=== PATIENT | female | born 1945 | race African-American/Black ===

== ENCOUNTER 2018-02-20 11:34 | Day surgery (SDC) | payer OTHER ==
[2018-02-20] MEDS ORDERED: NA CHLORIDE 0.9% 500 ML ONE (12:12)
[2018-02-20] MEDS ORDERED: LIDOCAINE 2% MPF 5 ML VIAL ONE ×2 (12:13→13:08)
[2018-02-20] MEDS ORDERED: BUPIVACAINE 0.25% PF 30 ML VIAL ONE (12:14)
[2018-02-20] MEDS ORDERED: BALANCED SALT IRRIG PLAIN 500 ML BTL IRR ONE (12:30)
[2018-02-20] MEDS ORDERED: DUOVISC 1 KIT OPTH ONE (12:30)
[2018-02-20] MEDS ORDERED: MOXIFLOXACIN HCL 10 DROPS/ML **OR USE OPTH ONE (12:30)
[2018-02-20] MEDS: CYCLOPENTOLATE 1% OPTH 2 ML ONE ×3 (12:37→12:55)
[2018-02-20] MEDS: PHENYLEPHRINE 10% OPTH 5ML ONE ×3 (12:37→12:55)
[2018-02-20] MEDS ORDERED: TETRACAINE HCL 0.5% 2ML OPTH ONE (12:39)
[2018-02-20] MEDS ORDERED: PROPOFOL 200 MG/20 ML VIAL IV ONE (13:08)
[2018-02-20] MEDS: EPINEPHRINE/PF 1 MG/ML AMP ONE ×2 (13:14→13:29)
--- NOTE | 2018-02-20 14:04 | P.BOP ---
Preoperative diagnosis: Nuclear sclerotic cataract and angle closure glaucoma OS Postoperative diagnosis: Same Primary procedure: Phacoemulsification with IOL OS, complex Estimated blood loss: none Anesthesia: Local (Subtenon's infusion with anesthesia for cataract surgery) Complications: None Implants: ZCB00 +23.0 Transferred to: Other (Day surger) Condition: Good
--- NOTE | 2018-02-21 01:12 | OP ---
Date of Procedure: 02/20/2018 Surgeon: Sully Eddy MD Anesthesiologist: Dick Taylor CRNA, and Ovi Bhat M.D. Preoperative Diagnoses: Nuclear sclerotic, angle-closure glaucoma, and miosis left eye. Operation Performed: Phacoemulsification with intraocular lens implant left eye complex with the use of iris retractors. Anesthesia: Per cataract surgery. Complications: None. Description Of The Procedure: In day surgery, the patient was prepped with Betadine and draped. A lid speculum was placed in the left eye. A conjunctival incision was made in the inferior nasal quadrant with Shayla scissors. A 1:1 mixture of 2% Xylocaine and 0.25% bupivacaine was placed around the globe. Approximately 5 mL were used. A [place] balloon was placed on the eye for approximately 5 minutes. The patient was brought into the operative room. The patient was prepped and draped in the usual sterile fashion for ophthalmic surgery. A lid speculum was placed in the eye. Paracentesis was made superiorly and inferiorly in the limbal cornea. Viscoat was placed in the anterior chamber. A crescent blade was used to create a tunnel incision in the temporal cornea and a keratome was used to enter the anterior chamber. The pupil did not dilate adequately. Five additional paracentesis sites were created with one at the wound, one 180 degrees from the wound, and three in the superior and inferior quadrants; through these, 5 iris retractors were placed. Provisc was placed in the eye and 360 degree capsulotomy was performed. The lens was hydrodissected with balanced salt solution and moved freely. The lens was removed in a stop and chop fashion. A 6.16 CDE was required. Irrigation and aspiration were used to remove residual cortex. Provisc was placed in the eye. A ZCB00 + 23.0 Diopter lens was placed in the capsular bag without complications. The iris retractors were removed. Irrigation and aspiration were used to remove residual viscoelastic. The paracentesis sites were hydrated with balanced salt solution and the wound and paracentesis sites were inspected and found to be watertight. Intracameral Vigamox 0.07 cc was injected at the end of the procedure. The eye was irrigated with balanced salt solution. The eye was patched with a soft cotton patch and Diaz metal shield. The patient was returned to day surgery in good condition. Comments: Epinephrine, 1:5000, was placed in the anterior chamber prior to Viscoat. Discharge Instructions: Ms. Dobbins was discharged to home in good condition and is to follow up with Dr. Eddy in the morning. RITA/JOHNNY Voice ID: [id number] Report ID: [id number] TRAVON
== END 2018-02-20 14:50 | disposition home or self-care (01) ==
LOC: OR 11:34
PROVIDERS: ATTEND Ophthalmology Retina Specialist
PROC: 08RK3JZ Replacement of Left Lens with Synthetic Substitute, Percutaneous Approach (ICD-10-PCS; principal; 2018-02-20 11:30)
DX: H25.12 Age-related nuclear cataract, left eye (principal); H40.20X0 Unspecified primary angle-closure glaucoma, stage unspecified; H57.03 Miosis; E11.9 Type 2 diabetes mellitus without complications; I10 Essential (primary) hypertension; I48.91 Unspecified atrial fibrillation; E07.9 Disorder of thyroid, unspecified; K21.9 Gastro-esophageal reflux disease without esophagitis; Z79.82 Long term (current) use of aspirin; Z88.2 Allergy status to sulfonamides; Z88.6 Allergy status to analgesic agent; Z83.511 Family history of glaucoma
CPT/HCPCS: 36415; 66982; 82962; 84132; J0171